=== PATIENT | female | born 1985 | race Caucasian/White ===

== ENCOUNTER 2021-08-24 01:48 | Outpatient (CLI) | payer OTHER, SELFPAY ==
[2021-08-24] VITALS (38 sets, daily range): BP systolic 48–110; BP diastolic 23–59; PULSE 91–124; RESP 16; TEMP 36.8–37.6; O2SAT 90–100; BMI 21.9
[2021-08-24] MEDS: Methylergonovine 0.2 MG/ML Ampul IM (02:05)
[2021-08-24] MEDS: Lactated Ringers 1,000 ML 999 ML IV (02:10)
[2021-08-24] MEDS: Oxytocin 10 UNITS/ML Vial IM (02:12)
[2021-08-24] MEDS: miSOPROStol 200 MCG Tablet 1000 MCG RC (02:24)
[2021-08-24 02:33] LABS: Absolute Lymphocyte Count 0.37 X10^3/uL (0.83-4.51); Absolute Neutrophil Count 11.6 X10^3/uL (2.0-7.7); Basophil# 0.01 X10^3/uL; Basophil% 0.1 % (0-1); Hemoglobin 9.9 g/dL (12.0-15.0); Lymphocyte # 0.37 X10^3/ul (0.83-4.51); Mean Corp Hgb Conc 34.1 g/dL (32-36); Mean Corpuscular Hgb 31.8 pg (27.0-32.0); Mean Corpuscular Volume 93.2 fL (81-99); Mean Platelet Vol. 11.2 fl (6.2-12.0); Monocyte# 0.17 X10^3/uL; Monocyte% 1.4 % (0-10); NRBC Flagged by Analyzer 0 % (0-5); Neutrophil # 11.56 X10^3/uL (2.7-7.7); Neutrophil % 95.1 % (47-70); POSITIVE DIFFERENTIAL YES; Platelet Count 202 K/mm3 (150-450); RBC Distribution Width CV 13.7 % (11.6-14.6); RBC Distribution Width SD 46.5 fl (35.1-43.9); Red Blood Count 3.11 M/mm3 (4.2-5.4); White Blood Count 12.2 K/mm3 (4.4-11.0)
[2021-08-24] MEDS: Cefazolin 2 GM in 0.9% Normal Saline 100 ML IV (02:36)
[2021-08-24 02:41] LABS: Differential Indicated SCAN CRITERIA MET
[2021-08-24 02:51] LABS: International Normalized Ratio 1.2
[2021-08-24 02:52] LABS: Partial Thromboplast Time 25.2 Seconds (24.1-36.2)
[2021-08-24] MEDS: Ondansetron 4 MG/2 ML Vial IV (02:55)
[2021-08-24] MEDS: Lactated Ringers 1,000 ML 125 ML IV (02:56)
--- NOTE | 2021-08-24 03:00 | PCM.HP.OB ---
HPI - General HPI Narrative LEEANN LYN, is a 35 F who presents with hemorrhage and retained products after 19-week demise and delivery at home with her mystery shopper Aylinhelen Lyn. Upon presentation she had 750 cc of clot that was present both on her pad that she said she had changed at 11:00 tonight and upon her initial evaluation here in labor and delivery. She had confirmed demise several weeks ago and was waiting to go into labor and delivered today. PFSH PFSH Allergy/AdvReac Type Severity Reaction Status Date / Time No Known Allergies Allergy Verified 08/24/21 02:20 ROS Constitutional Constitutional: Reports systems reviewed and no addt'l complaints, except as documented; Denies as per HPI or fever(s) Eyes Eyes: Reports systems reviewed and no addt'l complaints, except as documented; Denies as per HPI, change in vision or other ENT HEENT: Reports as per HPI and dizziness; Denies dry mouth, headache(s), loss taste/smell, nasal congestion, nasal discharge, neck pain, sore throat or other Respiratory/Chest Respiratory/Chest: Reports systems reviewed and no addt'l complaints, except as documented Gastrointestinal Gastrointestinal: Reports systems reviewed and no addt'l complaints, except as documented and nausea; Denies vomiting Musculoskeletal Musculoskeletal: Reports systems reviewed and no addt'l complaints, except as documented; Denies back pain or joint pain Neurologic Neurologic: Reports systems reviewed and no addt'l complaints, except as documented Psychiatric Psychiatric: Reports systems reviewed and no addt'l complaints, except as documented Endocrine Endocrinology: Reports systems reviewed and no addt'l complaints, except as documented Hematologic/Lymphatic Hematologic/Lymphatic: Reports systems reviewed and no addt'l complaints, except as documented Physical Exam Const Constitutional Narrative: pale, arousable General Appearance: cooperative, in distress and lethargic HEENT normocephalic Head and Scalp: atraumatic Eyes EOMs intact bilaterally and conjunctivae normal Neck full ROM, no lymphadenopathy, supple and thyroid normal General: trachea midline Lymph Lymphatic: no lymphadenopathy noted Resp normal respiratory effort, no retractions, no use of accessory muscles and clear to auscultation bilaterally Cardio regular rhythm GI normal to inspection, nondistended, normoactive bowel sounds, soft to palpation, non-distended and no masses Inspection: Negative for abdominal distention Narrative: Vaginal exam performed and placenta partially expelled, massaged and gently removed using a ring forcep. Bedside ultrasound performed and banjo curette entered into the uterus to confirm no additional retained products, bleeding minimal after placenta removed. Back/Spine no CVA tenderness Extremity normal to inspection Skin no rashes or lesions noted Neuro moves all extremities and deep tendon reflexes 2+ bilaterally Motor Exam: clonus absent Psych mental status grossly normal Labs Labs Labs: Blood Type Pending Antibody Screen Pending Hct 29.0 % (37-47) L Hgb 9.9 g/dL (12.0-15.0) L Assessment & Plan (1) Hypotension due to hypovolemia: COMMENT: See plan comments for hemorrhage (2) hemorrhage: COMMENT: Pitocin Methergine and Cytotec given. Initial hypotension due to hypovolemia, given IV fluids, Hespan, and medications per anesthesia. Initial hemoglobin 9.9. Repeat hemoglobin in 4 hours. (3) demise, less than 22 weeks, delivered, current hospitalization: COMMENT: Delivered at home by mystery shopper. Retained placenta. APL panel ordered. PLAN: See above plan comments for assessment and plan details Charges/Coding Visit Charges OBSV E&M: 64963 Initial observation care L3
[2021-08-24] MEDS: Oxytocin 30 units/NS 500 ml 30 UNITS/500 ML IV.SOLN 167 UNITS IV (03:15)
[2021-08-24 03:45] LABS: Differential Comment SCANNED; Platelet Estimate ADEQUATE (ADEQ)
[2021-08-24 03:48] LABS: Fibrinogen 300 mg/dl (203-444)
[2021-08-24 07:07] LABS: Absolute Lymphocyte Count 0.39 X10^3/uL (0.83-4.51); Absolute Neutrophil Count 5.7 X10^3/uL (2.0-7.7); Basophil# 0.01 X10^3/uL; Basophil% 0.2 % (0-1); Hematocrit 19.2 % (37-47); Hemoglobin 6.4 g/dL (12.0-15.0); Lymphocyte # 0.39 X10^3/ul (0.83-4.51); Lymphocyte % 6.3 % (19-41); Mean Corp Hgb Conc 33.3 g/dL (32-36); Mean Corpuscular Hgb 31.7 pg (27.0-32.0); Mean Platelet Vol. 10.7 fl (6.2-12.0); Monocyte# 0.13 X10^3/uL; Monocyte% 2.1 % (0-10); NRBC Flagged by Analyzer 0 % (0-5); Neutrophil # 5.65 X10^3/uL (2.7-7.7); Neutrophil % 91.1 % (47-70); POSITIVE DIFFERENTIAL YES; Platelet Count 133 K/mm3 (150-450); RBC Distribution Width CV 13.5 % (11.6-14.6); RBC Distribution Width SD 46.5 fl (35.1-43.9); Red Blood Count 2.02 M/mm3 (4.2-5.4); White Blood Count 6.2 K/mm3 (4.4-11.0)
[2021-08-24 07:10] LABS: Differential Indicated SCAN CRITERIA MET
[2021-08-24 08:06] LABS: Differential Comment SCANNED
[2021-08-24 08:19] LABS: Fibrinogen 206 mg/dl (203-444)
[2021-08-24] MEDS: 0.9% Normal Saline 1,000 ML 999 ML IV (08:51)
[2021-08-24] MEDS: 0.9% Saline Lock 10 ML Syringe IV (10:41)
--- NOTE | 2021-08-24 10:56 | NURSING ---
Vitals charted off of the TAR with a clock time of 1006 were actually obtained at the end of the blood transfusion at 1035. Unable to edit time vitals were obtained due to being charted on the TAR. Monitor in room to sync vitals at appropriate time.
[2021-08-24 12:44] LABS: Absolute Lymphocyte Count 0.96 X10^3/uL (0.83-4.51); Absolute Neutrophil Count 5.4 X10^3/uL (2.0-7.7); Basophil# 0.01 X10^3/uL; Basophil% 0.1 % (0-1); Eosinophil# 0.01 X10^3/uL; Eosinophils% 0.1 % (0-5); Hematocrit 23.9 % (37-47); Hemoglobin 8.2 g/dL (12.0-15.0); Lymphocyte # 0.96 X10^3/ul (0.83-4.51); Lymphocyte % 14.1 % (19-41); Mean Corp Hgb Conc 34.3 g/dL (32-36); Mean Corpuscular Hgb 31.5 pg (27.0-32.0); Mean Corpuscular Volume 91.9 fL (81-99); Mean Platelet Vol. 10.6 fl (6.2-12.0); Monocyte# 0.38 X10^3/uL; Monocyte% 5.6 % (0-10); NRBC Flagged by Analyzer 0 % (0-5); Neutrophil # 5.44 X10^3/uL (2.7-7.7); Neutrophil % 79.7 % (47-70); Platelet Count 153 K/mm3 (150-450); RBC Distribution Width CV 13.7 % (11.6-14.6); RBC Distribution Width SD 46.5 fl (35.1-43.9); White Blood Count 6.8 K/mm3 (4.4-11.0)
--- NOTE | 2021-08-24 13:00 | NURSING ---
and demise education completed with patient and . Both verbalize understanding. Contact information for [facility] office provided as well as Caleb Liason contact information.
[2021-08-26 12:08] LABS: Dilute Prothrombin Time (dPT) 40.9 sec (0.0-47.6); Dilute Russell Viper Venom 35.9 sec (0.0-47.0); PTT-LA 39.1 sec (0.0-51.9); Thrombin Time 16.3 sec (0.0-23.0); dPT Confirm Ratio 0.89 Ratio (0.00-1.34)
[2021-08-26 14:27] LABS: Anti-Cardiolipin Ab, IgA, Qn < 9 APL U/mL (0-11); Anti-Cardiolipin Ab, IgG, Qn < 9 GPL U/mL (0-14); Anti-Cardiolipin Ab, IgM, Qn < 9 MPL U/mL (0-12); Interpretation Comment: (.)
== END 2021-08-24 13:30 | disposition home or self-care (01) ==
LOC: WPOUT 02:05 → WP 02:19
PROVIDERS: PCP Family Medicine; Visit Provider Obstetrics & Gynecology
DX: O03.4 Incomplete spontaneous abortion without complication (principal); O72.1 Other immediate postpartum hemorrhage; O99.285 Endocrine, nutritional and metabolic diseases complicating the puerperium; E86.1 Hypovolemia; O99.43 Diseases of the circulatory system complicating the puerperium; I95.89 Other hypotension
CPT/HCPCS: 96365; 96368; 96367; 96375; 36415; 76815; 85025; 85384; 85610; 85730; 86147; 86850; 86900; 86901; 86920; 86922; 96372; 99218; J7030; J7120; P9016; A4216; G0378; J2405